=== PATIENT | male | born 1990 | race Caucasian/White ===

== ENCOUNTER 2023-08-15 11:55 | Emergency (ER) | payer OTHER ==
[2023-08-15] MEDS ORDERED: Buprenorphine 8mg/Naloxone 2mg per 1 FILM ONE (12:57)
[2023-08-15] MEDS ORDERED: Buprenorphine 8mg/Naloxone 2mg per 1 FILM SL SCH (13:00)
== END 2023-08-15 13:44 | disposition home or self-care (01) ==
LOC: ERS 11:55
DX: F11.23 Opioid dependence with withdrawal (principal); Z76.0 Encounter for issue of repeat prescription; F17.210 Nicotine dependence, cigarettes, uncomplicated
CPT/HCPCS: 99283; J0571